=== PATIENT | male | born 2000 | race American Indian/Alaskan Native ===

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

== ENCOUNTER 2019-10-23 17:25 | Emergency (ER) | payer MEDICAID, OTHER, SELFPAY ==
[2019-10-23 17:33] VITALS: BP 121/79; PULSE 88; RESP 16; TEMP 36.9; O2SAT 97; BMI 31.3
--- NOTE | 2019-10-23 17:38 | DI.RAD.S_ITS ---
PROCEDURE: XR HAND LT 2V INDICATIONS: laceration, clinical concern for foreign body. TECHNIQUE: 2 views of the hand(s) acquired. COMPARISON: None. FINDINGS: Bones: No fractures or dislocations. Carpal bones are normally aligned. No suspicious bony lesions. Soft tissues: No suspicious soft tissue calcifications. No radiopaque foreign bodies are seen. IMPRESSION: No radiopaque foreign bodies are seen. No acute bony injury is seen. If there is strong suspicion for developing osteomyelitis, please consider a dedicated MRI without and with contrast for further evaluation (assuming that there is no contraindication to MRI). Dictated by: Matthew Nunez M.D. on 10/23/2019 at 17:01 Approved by: Matthew Nunez M.D. on 10/23/2019 at 17:02
--- NOTE | 2019-10-23 18:34 | ED_ITS ---
HPI - Wound/Laceration <LAURYN Vazquez - Last Filed: 10/23/19 19:34> General Chief Complaint: Wound/Laceration Stated Complaint: cut left hand open Time Seen by Provider: 10/23/19 17:30 Source: patient Mode of arrival: Ambulatory Limitations: no limitations History of Present Illness HPI narrative: This is a 19-year-old male nonsmoker who presents to ED with left hand laceration from a knife on the base of the thumb on volar aspect prior coming into ED. 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 Right dominant hand and last tetanus shot was updated in 2-3 years ago. Patient reports able to move his hand/finger without difficulty and reports 9/10 and stinging discomfort. Related Data Previous Rx's Medication Instructions Recorded ibuprofen 800 mg PO Q8H PRN #20 tab 07/22/18 Allergies Allergy/AdvReac Type Severity Reaction Status Date / Time No Known Allergies Allergy Verified 10/23/19 17:33 Review of Systems <LAURYN Vazquez - Last Filed: 10/23/19 19:34> Review of Systems Narrative: General: Denies fever, chills, fatigue, malaise, sweats. HEENT: Denies sinus pain, ear pain, sore throat, difficulty swallowing, dizziness. Respiratory: Denies dyspnea, cough, wheezing, hemoptysis, sputum. Cardiovascular: Denies chest pain, palpitations, orthopnea, edema. Gastrointestinal: Denies nausea, vomiting, abdominal pain, diarrhea, constipation, melena. : Denies dysuria, frequency, incontinence, hematuria, urinary retention. Musculoskeletal: Denies weakness, joint pain or bony pain. Skin: See HPI Neurologic: Denies weakness, headache, numbness, change in speech, confusion, seizures, incoordination. Psychiatric: No concerning psychosocial issues. 12-point review of systems is negative except for those stated above. Patient History <LAURYN Vazquez - Last Filed: 10/23/19 19:34> Medical History Arm fracture, left (Acute) Surgical History H/O elbow surgery (Acute) Social History Smoking Status: Never smoker Smoking Status: Never smoker alcohol intake frequency: holidays/special occasions only Substance Use Type: does not use, former substance user and marijuana Exam <LAURYN Vazquez - Last Filed: 10/23/19 19:34> Narrative Exam Narrative: General appearance: well developed, well nourished, in no acute distress. Head: normocephalic, atraumatic, no scalp lesions, non-tender. ENT: Hearing grossly intact. Nose without bleeding, purulent discharge, septal hematoma or deviation. Turbinate without erythema or swelling. Facial sinuses nontender to palpate. Mucous membrane moist, no mucosal lesion. Throat without erythema, tonsillar hypertrophy or exudate. Uvula in midline, airway patent. Neck/Thyroid: neck supple, full range of motion, no visible masses or meningeal signs. No JVD, non-tender without lymphadenopathy. Skin: 2.5 linear laceration on volar aspect of left thumb metatarsal with bleeding when pressure dressing removed. No suspicious rashes, lesions over vi sible areas. Warm and dry and appropriate color for ethnicity. Heart: no clubbing, no cyanosis, no edema. Lungs: Breathing even and unlabored. No stridor. No accessory muscles used. Able to speak in full sentences. Chest: normal shape and expansion. Abdomen: non-obese, non-distended. Neurologic: alert and oriented. Cognitive exam, [employer] and PNS grossly intact on informal exam. Psych: good eye contact, normal affect. Initial Vital Signs Initial Vital Signs: Vital Signs Temperature 98.5 F 10/23/19 17:33 Pulse Rate 88 10/23/19 17:33 Respiratory Rate 16 10/23/19 17:33 Blood Pressure 121/79 10/23/19 17:33 Pulse Oximetry 97 10/23/19 17:33 Extrem Left upper extremity: hand Details: normal capillary refill, neuromotor exam normal, neurosensory exam normal, tendon exam normal, tenderness, vascular exam Details: radial pulse present, normal ROM of fingers and laceration (2.5 cm laceration on volar aspect of left thumb metatarsal); no foreign bodies <Telma Rivera DO - Last Filed: 10/24/19 08:29> Initial Vital Signs Initial Vital Signs: Vital Signs Temperature 98.5 F 10/23/19 17:33 Pulse Rate 88 10/23/19 17:33 Respiratory Rate 16 10/23/19 17:33 Blood Pressure 121/79 10/23/19 17:33 Pulse Oximetry 97 10/23/19 17:33 Procedures <[facility] - Last Filed: 10/23/19 19:34> Laceration Repair Laceration 1: Site: hand (volar aspect based on the thumb) Side (If applicable): left Size (cm): 2.5 Description: linear Depth: simple, single layer Local Anesthetic: lidocaine 1% and with bicarb Amount of anesthesia used (mL): 2.5 Pre-repair: wound explored and irrigated extensively Skin layer closed with: nylon Size (cm): 4-0 Number of sutures: 4 Technique: simple, interrupted Scores <[facility] - Last Filed: 10/23/19 19:34> GCS [place] coma scale eye opening: Spontaneous [place] coma scale verbal response: Orientated [place] coma scale motor response: Obey commands Orlin coma scale total score: 15 Course <Jluis Hillary [facility] - Last Filed: 10/23/19 19:34> Orders Ordered: Discontinued Medications Bacitracin (Bacitracin) 1 applic TOP NOW ONE Stop: 10/23/19 17:40 Lidocaine/Sodium Bicarbonate (Buffered Lidocaine 10 Ml Syr) 10 ml INJ NOW ONE Stop: 10/23/19 17:40 Vital Signs Vital signs: Vital Signs - 8 hr 10/23/19 17:33 10/23/19 18:49 Temperature 98.5 F Pulse Rate 88 81 Respiratory Rate 16 18 Blood Pressure 121/79 130/70 Pulse Oximetry 97 97 <Telma Rivera DO - Last Filed: 10/24/19 08:29> Orders Ordered: Discontinued Medications Bacitracin (Bacitracin) 1 applic TOP NOW ONE Stop: 10/23/19 17:40 Lidocaine/Sodium Bicarbonate (Buffered Lidocaine 10 Ml Syr) 10 ml INJ NOW ONE Stop: 10/23/19 17:40 Vital Signs Vital signs: Vital Signs - 8 hr 10/23/19 17:33 10/23/19 18:49 Temperature 98.5 F Pulse Rate 88 81 Respiratory Rate 16 18 Blood Pressure 121/79 130/70 Pulse Oximetry 97 97 [facility] - Wound/Laceration <LAURYN Vazquez - Last Filed: 10/23/19 19:34> Differential Diagnosis Differential diagnosis: Likely laceration Medical Records Attestation: I reviewed the patient's medical records. Imaging Data XR-Hand LT: Radiologist's Impression: [address] [address] XRay Report Signed Patient: Tucker Elias AMR#: [id number] : 2000Acct:[id number] Age/Sex: MDate of Service: 10/23/19 Loc: ED Accession Number: [id number] Procedure: XR hand LT 2V Ordering Provider: Jluis Thornton PROCEDURE: XR HAND LT 2V INDICATIONS: laceration, clinical concern for foreign body. TECHNIQUE: 2 views of the hand(s) acquired. COMPARISON: None. FINDINGS: Bones: No fractures or dislocations. Carpal bones are normally aligned. No suspicious bony lesions. Soft tissues: No suspicious soft tissue calcifications. No radiopaque foreign bodies are seen. IMPRESSION: No radiopaque foreign bodies are seen. No acute bony injury is seen. If there is strong suspicion for developing osteomyelitis, please consider a dedicated MRI without and with contrast for further evaluation (assuming that there is no contraindication to MRI). Dictated by: Matthew Nunez M.D. on 10/23/2019 at 17:01 Approved by: Matthew Nunez M.D. on 10/23/2019 at 17:02 [facility] Narrative Medical decision making narrative: This is 19-year-old male who accidentally cut left volar aspect of thumb metatarsal with a knife while he was working on a boat hydraulic pump for [employer]. Neurovascular exam is normal with intact motor function of left thumb. Laceration has been repaired and please see procedural note and patient tolerated procedure well. No evidence of fracture or foreign body per x-ray test. Return precautions were discussed with the patient including signs and symptoms for infection and suture removal in 7-10 days. Wound care instruction provided. Patient verbalized understanding and agrees with the treatment plan. Tetanus status is up to date. Discharge Plan Departure Patient Disposition: Home Clinical Impression: Laceration of hand Qualifiers: Encounter type: initial encounter Foreign body presence: without foreign body Laterality: left Qualified Code(s): S61.412A - Laceration without foreign body of left hand, initial encounter Discharge Date/Time: 10/23/19 18:50 Instructions: DI for Laceration Repair Activity Restrictions/Additional Instructions: You have been diagnosed with [laceration on left base of thumb. X-ray test does not show any foreign bodies.]. What to do: *Take your medications as directed. You can take [id number] Tylenol and or Motrin as needed for discomfort. Tylenol up to 4000 mg in 24 hour period and Motrin 600-800 mg 3 times a day with food to decrease GI irritation. Please do not get your wound soaked in the water until suture removal. Keep your dressing intact for next 24 hrs. After then, you could remove your dressing, wash with soap and water. Pat dry with clean paper towel and dress it with antibiotic ointment. You can change dressing as needed and daily. Please monitor for signs and symptoms for infection such as increasing redness, swelling, warmth, pain, fever, purulent discharge. If this occurs, please return to ED or follow up with your primary care physician since your wound may be gotten infected. Please follow up with your primary care provider in 2-3 days for recheck wound. Your suture should be removed [7-10 ] days. This can be done by your primary provider, walk-in clinic or here in ED. Please keep your wound clean, dry and intact all times. Prescriptions: No Action ibuprofen 800 mg tablet 800 mg PO Q8H PRN (Reason: pain) Qty: 20 RF: 0
[2019-10-23 18:49] VITALS: BP 130/70; PULSE 81; RESP 18; O2SAT 97
== END 2019-10-23 18:50 | disposition home or self-care (01) ==
PROVIDERS: Emergency Provider Nurse Practitioner Family
DX: S61.412A Laceration without foreign body of left hand, initial encounter (principal); W26.0XXA Contact with knife, initial encounter
CPT/HCPCS: 12001; 73120; 99283

== ENCOUNTER 2020-02-11 17:39 | Emergency (ER) | payer MEDICAID, OTHER, SELFPAY ==
--- NOTE | 2020-02-11 18:01 | PC.NURSE ---
called for triage with no answer
--- NOTE | 2020-02-11 19:03 | PC.NURSE ---
called x 2 not in WR
== END 2020-02-11 19:04 | disposition left against medical advice (07) ==
PROVIDERS: Emergency Provider Emergency Medicine

== ENCOUNTER 2020-03-16 23:07 | Emergency (ER) | payer MEDICAID, OTHER, SELFPAY ==
[2020-03-16 23:27] VITALS: BP 157/86; PULSE 76; RESP 15; TEMP 36.7; O2SAT 96; BMI 32.3
--- NOTE | 2020-03-17 | DI.RAD.S_ITS ---
PROCEDURE: XR CHEST 1V INDICATIONS: trauma TECHNIQUE: One view of the chest was acquired. COMPARISON: [facility], RG, XR CXR 2V, 1999, 13:16. [facility], RG, XR CXR 2V, 1999, 13:07. [facility], CT, CT HEAD/BRAIN WO CON, 03/17/2020, 0:03. [facility], CT, CT CERVICAL SPINE WO CON, 03/17/2020, 0:03. [facility], CR, XR HAND RT MIN 3V, 03/16/2020, 23:58. FINDINGS: Surgical changes and devices: None. Lungs and pleura: An incomplete inspiratory result is noted, causing a crowded appearance to the lung markings. No focal infiltrates are seen. No pneumothorax or significant pleural effusions are seen. Mediastinum: Mediastinal contours appear normal. Heart size is normal. Bones and chest wall: No suspicious bony lesions. Overlying soft tissues appear unremarkable. IMPRESSION: Unremarkable portable chest study. No pneumothorax or displaced rib fractures are seen. If there is strong clinical concern for chest trauma, please consider a dedicated chest CT with IV contrast for further evaluation. Dictated by: Matthew Nunez M.D. on 03/17/2020 at 7:22 Approved by: Matthew Nunez M.D. on 03/17/2020 at 7:23
--- NOTE | 2020-03-17 | DI.CT.S_ITS ---
PROCEDURE: CT CERVICAL SPINE WO CON INDICATIONS: Trauma TECHNIQUE: Noncontrast 3 mm thick sections acquired from the skull base to the T4 level. Sagittal and coronal reformats were then constructed. For radiation dose reduction, the following was used: automated exposure control, adjustment of mA and/or kV according to patient size. COMPARISON: [facility], CT, CT HEAD/BRAIN WO CON, 03/17/2020, 0:03. [facility], CR, XR CHEST 1V, 03/16/2020, 23:58. [facility], CR, XR HAND RT MIN 3V, 03/16/2020, 23:58. FINDINGS: Image quality: Excellent. Bones: No fractures or dislocations. Visualized superior ribs are intact. Soft tissues: Prevertebral soft tissues are normal in thickness. No paravertebral hematomas. No apical pneumothoraces. IMPRESSION: Normal study, without fractures. Note: No significant discrepancy from the preliminary report. Dictated by: Matthew Nunez M.D. on 03/17/2020 at 7:20 Approved by: Matthew Nunez M.D. on 03/17/2020 at 7:21
--- NOTE | 2020-03-17 | DI.RAD.S_ITS ---
PROCEDURE: XR HAND RT MIN 3V INDICATIONS: trauma TECHNIQUE: 3 views of the hand(s) acquired. COMPARISON: [facility], CT, CT CERVICAL SPINE WO CON, 03/17/2020, 0:03. [facility], CT, CT HEAD/BRAIN WO CON, 03/17/2020, 0:03. [facility], CR, XR CHEST 1V, 03/16/2020, 23:58. [facility], CR, XR HAND LT 2V, 10/23/2019, 17:49. FINDINGS: Study is limited by nonstandard positioning. Bones: No acute fractures or dislocations. Remote appearing is seen of the distal radius. Carpal bones are normally aligned. No suspicious bony lesions. Soft tissues: No suspicious soft tissue calcifications. IMPRESSION: No displaced fractures are seen on these plain films. If there is focal tenderness, or other clinical concern for a fracture not seen on these images in this patient with a given history of trauma, please consider a dedicated CT or a short-term followup plain film series (in 1-2 weeks) for further evaluation. Presumed remote, healed distal radius fracture. Dictated by: Matthew Nunez M.D. on 03/17/2020 at 7:23 Approved by: Matthew Nunez M.D. on 03/17/2020 at 7:24
--- NOTE | 2020-03-17 | DI.CT.S_ITS ---
PROCEDURE: CT HEAD/BRAIN WO CON INDICATIONS: Trauma TECHNIQUE: Noncontrast 4.5 mm thick angled axial sections acquired from the foramen magnum to the vertex, with coronal and sagittal reformats. For radiation dose reduction, the following was used: automated exposure control, adjustment of mA and/or kV according to patient size. COMPARISON: [facility], CT, CT CERVICAL SPINE WO CON, 03/17/2020, 0:03. [facility], CR, XR CHEST 1V, 03/16/2020, 23:58. [facility], CR, XR HAND RT MIN 3V, 03/16/2020, 23:58. FINDINGS: Image quality: Excellent. CSF spaces: Basal cisterns are patent. No extra-axial fluid collections. Ventricles are normal in size and shape. Brain: No midline shift. No intracranial masses or hemorrhage. [place]-white matter interface is normal. Skull and face: Calvarium and visualized facial bones are intact, without suspicious lesions. Sinuses: Visualized sinuses and mastoids are clear. IMPRESSION: No acute intracranial hemorrhage is seen. No acute intracranial process is seen. Note: No significant discrepancy from the preliminary report. Dictated by: Matthew Nunez M.D. on 03/17/2020 at 7:19 Approved by: Matthew Nunez M.D. on 03/17/2020 at 7:20
[2020-03-17 00:33] LABS: Ur Creatinine Normal (Normal); Ur Specific Gravity Normal (Normal); Urine pH Normal (Normal)
[2020-03-17 00:34] LABS: UR Morphine/Opiate cutoff 300 Positive (Negative); Urine Amphetamines Negative (Negative); Urine Barbiturates Negative (Negative); Urine Benzodiazepines Negative (Negative); Urine Cocaine Negative (Negative); Urine MDMA Negative (Negative); Urine Methadone Negative (Negative); Urine Methamphetamines Negative (Negative); Urine Oxycodone Negative (Negative); Urine Phencyclidine Negative (Negative); Urine Tetrahydrocannabinol Positive (Negative); Urine Tricyclic Antidepressant Negative (Negative)
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
[2020-03-17 01:18] LABS: Add Manual Diff / Slide Review NO; Basophils Absolute Auto 0 /uL (0-100); Basophils Percent Auto 0.4 % (0-2); Eosinophils Absolute Auto 100 /uL (0-450); Hemoglobin 14.1 g/dL (13.5-17.5); Lymphocytes Absolute Auto 1400 /uL (1100-4500); Lymphocytes Percent Auto 19.1 % (25-40); Mean Corpuscular HGB Conc 33.6 % (30-36); Mean Corpuscular Hemoglobin 28.8 PG (26-34); Mean Corpuscular Volume 85.8 fL (80-100); Monocytes Absolute Auto 700 /uL (0-900); Monocytes Percent Auto 9.3 % (3-14); Neutrophils Absolute Auto 5000 /uL (1500-7000); Neutrophils Percent Auto 70.2 % (50-75); Platelet Count 252 X10^3/uL (150-400); White Blood Cell Count 7.1 X10^3/uL (4.5-11.0)
[2020-03-17 01:30] VITALS: BP 131/76; PULSE 80; RESP 17; O2SAT 98
[2020-03-17 01:43] LABS: Alanine Aminotransferase 26 IU/L (<50); Albumin 4.4 g/dL (3.5-5.0); Albumin Globulin Ratio 1.5 (1.0-2.8); Alkaline Phosphatase 71 U/L (38-126); Aspartate Aminotransferase 47 IU/L (17-59); BUN Creatinine Ratio 17.4 (6-22); Bilirubin Total 0.6 mg/dL (0.2-1.3); Blood Urea Nitrogen 12 mg/dL (9-20); Calcium 9.5 mg/dL (8.4-10.2); Carbon Dioxide 25 mmol/L (22-32); Chloride 102 mmol/L (98-107); Estimated Glomerular Filt Rate > 60.0 mL/min (>60); Ethanol (ETOH) < 10 mg/dL; Globulin 2.9 g/dL (1.7-4.1); Glucose 93 mg/dL (70-100); HEMOLYSIS < 15 (0-50); Lipase 76 U/L (23-300); Potassium 3.7 mmol/L (3.4-5.1); Sodium 136 mmol/L (137-145); Total Protein 7.3 g/dL (6.3-8.2)
== END 2020-03-17 02:27 | disposition home or self-care (01) ==
PROVIDERS: Emergency Provider Emergency Medicine
DX: R41.82 Altered mental status, unspecified (principal); S60.221A Contusion of right hand, initial encounter; F11.90 Opioid use, unspecified, uncomplicated; V89.2XXA Person injured in unspecified motor-vehicle accident, traffic, initial encounter
CPT/HCPCS: 36415; 70450; 71045; 72125; 73130; 80053; 80305; 80320; 81003; 83690; 85025; 99283; 99284

== ENCOUNTER 2021-02-25 22:10 | Emergency (ER) | payer MEDICAID, OTHER, SELFPAY ==
[2021-02-25 22:40] VITALS: BP 124/59; PULSE 92; RESP 16; TEMP 36.9; O2SAT 98; BMI 33.3
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
--- NOTE | 2021-02-25 22:50 | DI.RAD.S_ITS ---
PROCEDURE: XR TIBIA FUBULA RT 2V INDICATIONS: pain swelling TECHNIQUE: 2 views of the tibia and fibula were acquired. COMPARISON: None. FINDINGS: Bones: No fractures or dislocations. No suspicious bony lesions. Soft tissues: No suspicious soft tissue calcifications or masses. IMPRESSION: No fracture. No osseous lesion. If symptoms and/or clinical suspicion for pathology persists, further assessment with repeat radiographs (7-10 days) or advanced imaging (e.g. CT, MRI or bone scan) should be considered. Dictated by: Marcela Barakat MD, PhD on 02/26/2021 at 8:15 Approved by: Marcela Barakat MD, PhD on 02/26/2021 at 8:15
--- NOTE | 2021-02-25 22:50 | DI.RAD.S_ITS ---
PROCEDURE: XR FOOT RT MIN 3V INDICATIONS: pain swelling TECHNIQUE: 3 views of the foot were acquired. COMPARISON: None. FINDINGS: Bones: No fractures or dislocations. No suspicious bony lesions. Soft tissues: No tibiotalar joint effusion. Achilles tendon appears normal. IMPRESSION: No fracture. No osseous lesion. If symptoms and/or clinical suspicion for pathology persists, further assessment with repeat radiographs (7-10 days) or advanced imaging (e.g. CT, MRI or bone scan) should be considered. Dictated by: Marcela Barakat MD, PhD on 02/26/2021 at 8:17 Approved by: aMrcela Barakat MD, PhD on 02/26/2021 at 8:17
--- NOTE | 2021-02-25 22:50 | DI.RAD.S_ITS ---
PROCEDURE: XR ANKLE RT MIN 3V INDICATIONS: pain swelling TECHNIQUE: 3 views of the ankle were acquired. COMPARISON: None. FINDINGS: Bones: No fractures or dislocations. Ankle mortise is normally aligned. No suspicious bony lesions. Soft tissues: No tibiotalar joint effusion. Achilles tendon appears normal. IMPRESSION: No fracture. No osseous lesion. If symptoms and/or clinical suspicion for pathology persists, further assessment with repeat radiographs (7-10 days) or advanced imaging (e.g. CT, MRI or bone scan) should be considered. Dictated by: Marcela Barakat MD, PhD on 02/26/2021 at 8:15 Approved by: Marcela Barakat MD, PhD on 02/26/2021 at 8:16
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
[2021-02-26] MEDS: ACETAMINOPHEN 325 MG TABLET PO (02:03)
[2021-02-26] MEDS: IBUPROFEN 400 MG TABLET PO (02:03)
== END 2021-02-26 02:10 | disposition home or self-care (01) ==
PROVIDERS: Emergency Provider Emergency Medicine
DX: S89.91XA Unspecified injury of right lower leg, initial encounter (principal); X58.XXXA Exposure to other specified factors, initial encounter
CPT/HCPCS: 73562; 73590; 73610; 73630; 99283

== ENCOUNTER 2021-04-04 21:23 | Emergency (ER) | payer MEDICAID, OTHER, SELFPAY ==
[2021-04-04 21:32] VITALS: BP 130/69; PULSE 80; RESP 14; TEMP 36.9; O2SAT 97; BMI 27.6
[2021-04-04 22:13] LABS: Appearance Urine UA CLOUDY; Bilirubin Urine UA NEGATIVE (NEGATIVE); Color Urine UA YELLOW; Glucose Urine UA NEGATIVE (Negative); Ketones Urine UA NEGATIVE (NEGATIVE); Leukocyte Esterase Urine UA 2+ (NEGATIVE); Nitrite Urine UA NEGATIVE (Negative); Occult Blood Urine UA 3+ (Negative); Protein Urine UA 2+ (Negative); Specific Gravity Urine UA 1.025 (1.000-1.035)
[2021-04-04 22:21] LABS: Bacteria Urine Few (2-10); Culture Indicated Urine Specimen Cultured; RBC Urine 10-30/HPF (0-5/HPF); WBC Urine 30-100/HPF (0-5/HPF)
[2021-04-04 23:48] LABS: Urine Chlamydia NOT DETECTED
[2021-04-05 14:05] LABS: Urine N gonorrhoeae DETECTED
== END 2021-04-04 22:15 | disposition left against medical advice (07) ==
PROVIDERS: Emergency Provider Emergency Medicine
DX: R36.9 Urethral discharge, unspecified (principal)
CPT/HCPCS: 81001; 87077; 87086; 87491; 87591; 99281

== ENCOUNTER 2022-09-25 06:52 | Emergency (ER) | payer MEDICAID, OTHER, SELFPAY ==
[2022-09-25 06:35] VITALS: BP 128/71; PULSE 116; RESP 16; TEMP 36.6; O2SAT 85
--- NOTE | 2022-09-25 07:23 | ED_ITS ---
HPI - Overdose General Chief Complaint: Toxicology Problem Stated Complaint: OD smoking percocet Time Seen by Provider: 09/25/22 07:12 Source: patient and EMS Mode of arrival: EMS Limitations: no limitations History of Present Illness HPI Narrative: This is a 22-year-old male sober for approximately 9 months, patient takes venlafaxine and mirtazapine daily and presents today with unintentional overdose. Patient states he used to smoke about 30 or 40 tablets of Percocet today he states he took approximately 430 mg Percocets likely with fentanyl mixed in and received 16 mg of Narcan from family, he received this probably an hour to an hour and a half prior to my evaluation at 8:00 a.m. Patient did have overdose the day before. He states he was [facility] recently which had forced him to get sober. Patient states that he missed. He wishes to be sober. He expresses interest in rehab and that his mom is coming to the emergency department to help talk to him about it. Patient states right now he denies any chest pain or shortness of breath. He states he vomited a lot initially, he does not remember exactly what happened. He states he is not nauseated now. He states he did not get any diarrhea. He does not feel like he is cold or shivering. Denies any other GI or urinary symptoms besides stated above. Patient denies any other daily medications. No known drug allergies. States occasional vaping of tobacco, denies any active alcohol use, denies other illicit drugs currently. Related Data Previous Rx's Medication Instructions Recorded ibuprofen 800 mg tablet 800 mg PO Q8H PRN pain #20 tabs 07/22/18 amoxicillin 875 mg-potassium 1 tab PO BID 10 days #20 tabs 09/25/22 clavulanate 125 mg tablet Allergies Allergy/AdvReac Type Severity Reaction Status Date / Time No Known Allergies Allergy Verified 04/04/21 21:41 Review of Systems Review of Systems ROS Unobtainable: All systems reviewed & are unremarkable except as noted in HPI and below Patient History Medical History Arm fracture, left Opioid use disorder, severe, in early remission Surgical History H/O elbow surgery Social History Smoking Status: Never smoker Smoking Status: Never smoker alcohol intake frequency: 0-2 drinks per day Substance Use Type: former substance user Exam Narrative Exam Narrative: GEN: well nourished, well appearing male, alert and oriented x 3, patient appears to be in mild distress. HEENT: Atraumatic, pupils are equal round reactive to light, extraocular movements are intact, nares are clear, TMs are clear with no fluid, there is no conjunctival pallor. Throat is clear without any exudates, erythema, tonsillar enlargement or uvular deviation HEART: Tachycardic but Regular rate and rhythm without murmur, clicks, rubs. Pulses are equal in upper and lower extremities LUNGS:Lungs clear to auscultation, no wheezes, rales, crackles, chest moves symmetrically, no tachypnea accessory muscle use. ABD:bowel sounds normal, soft, non-tender, no guarding, rebound, rigidity, no masses noted, no hepatosplenomegaly :No CVA tenderness MSCL: Non-tender, no muscle atrophy, muscles strength 5/5 upper and lower extremities, full range of motion NEURO:CN 2-12 intact, sensation normal, GCS 15 SKIN: Rash, erythema or other skin changes noted. Initial Vital Signs Initial Vital Signs: Vital Signs Temperature 98 F 09/25/22 06:35 Pulse Rate 116 H 09/25/22 06:35 Respiratory Rate 16 09/25/22 06:35 Blood Pressure 128/71 09/25/22 06:35 Pulse Oximetry 85 L 09/25/22 06:35 Oxygen Delivery Method 09/25/22 06:35 Scores GCS Noel coma scale eye opening: Spontaneous Noel coma scale verbal response: Orientated Noel coma scale motor response: Obey commands Noel coma scale total score: 15 Course Orders Ordered: Discontinued Medications Sodium Chloride (Normal Saline 0.9%) 1,000 mls @ 150 mls/hr IV CONT BLANCA Last Infusion: 09/25/22 09:38 Dose: 0 mls/hr Documented By: Admin: 09/25/22 07:54 Dose: 150 mls/hr Documented By: WING Naloxone HCl (Naloxone 1 Mg/Ml Syringe) 2 mg IV PRN PRN PRN Reason: Opiate Reversal Naloxone HCl (Naloxone 1 Mg/Ml Syringe) 0.4 mg IV PRN PRN PRN Reason: Opiate Reversal Naloxone HCl (Naloxone 4 Mg Nasal [place]) 4 mg MISC SEEINSTR ONE Stop: 09/25/22 09:31 Last Admin: 09/25/22 09:35 Dose: 4 mg Documented By: FERN Ondansetron HCl (Ondansetron 4 Mg/2 Ml Inj) 4 mg IV NOW ONE Stop: 09/25/22 09:14 Last Admin: 09/25/22 09:16 Dose: 4 mg Documented By: EFRN Vital Signs Vital signs: Vital Signs - 8 hr 09/25/22 06:35 Temperature 98 F Pulse Rate 116 H Respiratory Rate 16 Blood Pressure 128/71 Pulse Oximetry 85 L Oxygen Delivery Method Room Air MDM - Overdose Lab Data Result diagrams: 09/25/22 07:30 09/25/22 07:30 Labs: Lab Results 09/25/22 09/25/22 09/25/22 Range/Units 07:30 07:30 07:30 WBC 11.8 H (4.5-11.0) X10^3/uL RBC 5.25 (4.5-5.9) X10^6/uL Hgb 14.5 (13.5-17.5) g/dL Hct 44.3 (41-53) % MCV 84.4 (80-100) fL MCH 27.7 (26-34) PG MCHC 32.8 (30-36) % RDW 14.4 (11.6-14.8) % Plt Count 303 (150-400) X10^3/uL Neut % (Auto) 90.2 H (50-75) % Lymph % (Auto) 4.6 L (25-40) % [place] % (Auto) 4.7 (3-14) % Eos % (Auto) 0.1 L (2-4) % Baso % (Auto) 0.4 (0-2) % Neut # (Auto) 25575 H (9341-5916) /uL Lymph # (Auto) 500 L (8969-8926) /uL [place] # (Auto) 600 (0-900) /uL Eos # (Auto) 0 (0-450) /uL Baso # (Auto) 0 (0-100) /uL Sodium 137 (137-145) mmol/L Potassium 5.2 H (3.4-5.1) mmol/L Chloride 96 L (98-107) mmol/L Carbon Dioxide 33 H (22-32) mmol/L BUN 15 (9-20) mg/dL Creatinine 0.78 (0.66-1.25) mg/dL Estimated GFR > 60 (>60) mL/min BUN/Creatinine Ratio 19.2 (6-22) Glucose 109 H (70-100) mg/dL Lactate 1.2 (0.7-2.1) mmol/L Calcium 8.4 (8.4-10.2) mg/dL Total Bilirubin 0.7 (0.2-1.3) mg/dL Conjugated Bilirubin 0.0 (0.0-0.3) md/dL Unconjugated Bilirubin 0.3 (0.0-1.1) mg/dL AST 27 (17-59) IU/L ALT 29 (<50) IU/L Alkaline Phosphatase 115 (38-126) U/L Total Protein 8.2 (6.3-8.2) g/dL Albumin 4.5 (3.5-5.0) g/dL Globulin 3.7 (1.7-4.1) g/dL Albumin/Globulin Ratio 1.2 (1.0-2.8) Salicylates < 1.0 (<20) mg/dL U Opiates 300ng/mL cut (Negative) Ur Oxycodone Screen (Negative) Urine Methadone Screen (Negative) Acetaminophen < 10 (10-30) ug/mL Ur Barbiturates Screen (Negative) U Tricyclic Antidepress (Negative) Ur Phencyclidine Scrn (Negative) Ur Amphetamines Screen (Negative) U Methamphetamines Scrn (Negative) Ur MDMA Scrn (Ecstasy) (Negative) U Benzodiazepines Scrn (Negative) Urine Cocaine Screen (Negative) U Marijuana (THC) Screen (Negative) Ethyl Alcohol < 10 ( - 10) mg/dL SARS-CoV-2 (PCR) (Negative) 09/25/22 09/25/22 Range/Units 07:30 08:21 WBC (4.5-11.0) X10^3/uL RBC (4.5-5.9) X10^6/uL Hgb (13.5-17.5) g/dL Hct (41-53) % MCV (80-100) fL MCH (26-34) PG MCHC (30-36) % RDW (11.6-14.8) % Plt Count (150-400) X10^3/uL Neut % (Auto) (50-75) % Lymph % (Auto) (25-40) % [place] % (Auto) (3-14) % Eos % (Auto) (2-4) % Baso % (Auto) (0-2) % Neut # (Auto) (2610-7249) /uL Lymph # (Auto) (3800-5750) /uL [place] # (Auto) (0-900) /uL Eos # (Auto) (0-450) /uL Baso # (Auto) (0-100) /uL Sodium (137-145) mmol/L Potassium (3.4-5.1) mmol/L Chloride (98-107) mmol/L Carbon Dioxide (22-32) mmol/L BUN (9-20) mg/dL Creatinine (0.66-1.25) mg/dL Estimated GFR (>60) mL/min BUN/Creatinine Ratio (6-22) Glucose (70-100) mg/dL Lactate (0.7-2.1) mmol/L Calcium (8.4-10.2) mg/dL Total Bilirubin (0.2-1.3) mg/dL Conjugated Bilirubin (0.0-0.3) md/dL Unconjugated Bilirubin (0.0-1.1) mg/dL AST (17-59) IU/L ALT (<50) IU/L Alkaline Phosphatase (38-126) U/L Total Protein (6.3-8.2) g/dL Albumin (3.5-5.0) g/dL Globulin (1.7-4.1) g/dL Albumin/Globulin Ratio (1.0-2.8) Salicylates (<20) mg/dL U Opiates 300ng/mL cut Negative (Negative) Ur Oxycodone Screen Negative (Negative) Urine Methadone Screen Negative (Negative) Acetaminophen (10-30) ug/mL Ur Barbiturates Screen Negative (Negative) U Tricyclic Antidepress Negative (Negative) Ur Phencyclidine Scrn Negative (Negative) Ur Amphetamines Screen Negative (Negative) U Methamphetamines Scrn Negative (Negative) Ur MDMA Scrn (Ecstasy) Negative (Negative) U Benzodiazepines Scrn Negative (Negative) Urine Cocaine Screen Negative (Negative) U Marijuana (THC) Screen Negative (Negative) Ethyl Alcohol ( - 10) mg/dL SARS-CoV-2 (PCR) Negative (Negative) Point of Care Testing Glucose POC 124 Urine Dip Bedside Urine Glucose Negative Bedside Urine Bilirubin - Negative Bedside Urine Ketone +/- 5 Urine Specific [place] 1.030 Bedside Urine Occult Blood - Negative Bedside Urine pH 6.0 Bedside Urine Protein + 30 Bedside Urine Urobilinogen - Negative Bedside Urine Nitrite - Negative Bedside Urine Leukocytes - Negative Esterase Imaging Data Chest x-ray: Radiologist's Impression: [address] [address] XRay Report Signed Patient: Tucker Belle JR MR#: [id number] : 2000 Acct:[id number] Age/Sex: 22 / M Date of Service: 09/25/22 Loc: ED Accession Number: [id number] ?? Procedure: XR chest 1V Ordering Provider: Telma Rivera D.O. PROCEDURE:? XR CHEST 1V ? INDICATIONS:? overdose/smoking percoset ? TECHNIQUE:? One view of the chest was acquired.? ? COMPARISON:? [facility], CR, XR CHEST 1V, 03/16/2020, 23:58. ? FINDINGS:? ? Surgical changes and devices:? Overlying monitoring wires. ? Lungs and pleura:? Bilateral perihilar peribronchial thickening.? Multifocal patchy alveolar opacities in the right lung.? No pneumothorax or pleural effusion. ? Mediastinum:? Mediastinal contours appear normal.? Heart size is normal.? ? Bones and chest wall:? No suspicious bony lesions.? Overlying soft tissues appear unremarkable.? ? IMPRESSION:? ? 1. Multifocal right lung pneumonia superimposed on bilateral bronchitis.? ? ? Dictated by: Katherine Flannery M.D. on 09/25/2022 at 8:47 ? ? Approved by: Katherine Flannery M.D. on 09/25/2022 at 8:48?? ECG Data Attestation: I personally reviewed and interpreted this ECG as follows: Interpretation: Sinus tachycardia rate of 118 UT 140 QRS 80 QTC of 451. No acute ST changes noted. MDM Narrative Medical decision making narrative: This is a 22-year-old male with history of substance abuse who had been sober for 8-10 months who overdosed on narcotics. Patient states unintentionally, he states that he only used 4 tablets initially was 85% on room air, he appears to be weaning down. He received quite a bit of Narcan in the field likely intranasal from his family up to 16 mg reportedly. He is in no acute distress currently he is still tachycardic. Patient and I discussed if he would be interested in placement in rehab facility. He expresses interest but also states that his mom is coming to help him with it. Patient is insisting that he leave he is requiring oxygen to maintain into the mid 90s for his oxygenation. Discussed with patient I suspect he aspirated could have a component pulmonary edema as well as Narcan but seems to be more right sided and he did have emesis at the scene. Patient is insistent that he leaves, he is competent, understands the risk we reviewed these his significant others at bedside as well. She is also tried to convince him to stay. When asked if there was anything that would help convince the patient to stay he states no. He is open having a prescription for antibiotics although I discussed this takes a couple days and with low oxygen if it continues to drop or stays persistently low can cause . Patient expresses understanding and I filled out the Against Medical Advice paperwork with the patient at bedside. He was provided Narcan prepack and he states he will have family around that is helpful and knows how to use Narcan. Naloxone at Discharge Meets criteria for naloxone at discharge?: Yes (patient got narcan. Can't close chart unless clicking button below.) Reason patient is not provided naloxone?: Other reason (patient did receive narcan. ) Discharge Plan Departure Patient Disposition: Left Against Medical Advice Clinical Impression: Aspiration pneumonia, Opiate or related narcotic overdose Activity Restrictions/Additional Instructions: You should stay in the hospital your oxygen levels are low and your off oxygen secondary to aspirating vomit and causing pneumonia. You will if your oxygen levels continue to drop or continued to stay very low. You are welcome to return at any time regardless of how you feel. Prescription for antibiotics is printed, this medication take several days to be fully effective. It may be helpful to be on antibiotics to help with the aspiration pneumonia, prepack for Narcan is also provided. Please give this to your family or individuals that you trust and make sure they know how to use it. Prescriptions: New amoxicillin-pot clavulanate 875-125 mg tablet 1 tab PO BID 10 Days Qty: 20 0RF No Action ibuprofen 800 mg tablet 800 mg PO Q8H PRN (Reason: pain) Qty: 20 0RF Stand Alone Forms: Against Medical Advice
[2022-09-25] MEDS: SODIUM CHLORIDE 0.9% 1,000 ML 150 ML IV (07:54)
[2022-09-25 08:00] VITALS: PULSE 112; RESP 20; O2SAT 96
[2022-09-25 08:02] LABS: Add Manual Diff / Slide Review NO; Basophils Absolute Auto 0 /uL (0-100); Basophils Percent Auto 0.4 % (0-2); Eosinophils Absolute Auto 0 /uL (0-450); Eosinophils Percent Auto 0.1 % (2-4); Hematocrit 44.3 % (41-53); Hemoglobin 14.5 g/dL (13.5-17.5); Lymphocytes Absolute Auto 500 /uL (1100-4500); Lymphocytes Percent Auto 4.6 % (25-40); Mean Corpuscular HGB Conc 32.8 % (30-36); Mean Corpuscular Hemoglobin 27.7 PG (26-34); Mean Corpuscular Volume 84.4 fL (80-100); Monocytes Absolute Auto 600 /uL (0-900); Monocytes Percent Auto 4.7 % (3-14); Neutrophils Absolute Auto 10700 /uL (1500-7000); Neutrophils Percent Auto 90.2 % (50-75); Platelet Count 303 X10^3/uL (150-400); Red Blood Cell Count 5.25 X10^6/uL (4.5-5.9); Red Cell Distribution Width 14.4 % (11.6-14.8); White Blood Cell Count 11.8 X10^3/uL (4.5-11.0)
--- NOTE | 2022-09-25 08:04 | DI.RAD.S_ITS ---
PROCEDURE: XR CHEST 1V INDICATIONS: overdose/smoking percoset TECHNIQUE: One view of the chest was acquired. COMPARISON: [facility], CR, XR CHEST 1V, 03/16/2020, 23:58. FINDINGS: Surgical changes and devices: Overlying monitoring wires. Lungs and pleura: Bilateral perihilar peribronchial thickening. Multifocal patchy alveolar opacities in the right lung. No pneumothorax or pleural effusion. Mediastinum: Mediastinal contours appear normal. Heart size is normal. Bones and chest wall: No suspicious bony lesions. Overlying soft tissues appear unremarkable. IMPRESSION: 1. Multifocal right lung pneumonia superimposed on bilateral bronchitis. Dictated by: Katherine Flannery M.D. on 09/25/2022 at 8:47 Approved by: Katherine Flannery M.D. on 09/25/2022 at 8:48
[2022-09-25 08:23] VITALS: BP 134/78; PULSE 114; RESP 19; O2SAT 96
[2022-09-25 08:26] LABS: COVID19 -Nasal RAPID Negative (Negative)
[2022-09-25 08:30] VITALS: BP 135/70; PULSE 110; RESP 14; O2SAT 96
[2022-09-25 08:35] LABS: Acetaminophen < 10 ug/mL (10-30); Alanine Aminotransferase 29 IU/L (<50); Albumin 4.5 g/dL (3.5-5.0); Albumin Globulin Ratio 1.2 (1.0-2.8); Alkaline Phosphatase 115 U/L (38-126); Aspartate Aminotransferase 27 IU/L (17-59); BUN Creatinine Ratio 19.2 (6-22); Bilirubin Total 0.7 mg/dL (0.2-1.3); Bilirubin Unconjugated 0.3 mg/dL (0.0-1.1); Blood Urea Nitrogen 15 mg/dL (9-20); Calcium 8.4 mg/dL (8.4-10.2); Carbon Dioxide 33 mmol/L (22-32); Chloride 96 mmol/L (98-107); Estimated Glomerular Filt Rate > 60 mL/min (>60); Ethanol (ETOH) < 10 mg/dL; Globulin 3.7 g/dL (1.7-4.1); Glucose 109 mg/dL (70-100); HEMOLYSIS < 15 (0-50); Lactate (Lactic Acid) 1.2 mmol/L (0.7-2.1); Potassium 5.2 mmol/L (3.4-5.1); Salicylate < 1.0 mg/dL (<20); Sodium 137 mmol/L (137-145); Total Protein 8.2 g/dL (6.3-8.2)
[2022-09-25 08:39] LABS: Ur Creatinine Normal (Normal); Ur Specific Gravity Normal (Normal); Urine Tetrahydrocannabinol Negative (Negative); Urine pH Normal (Normal)
[2022-09-25 08:40] LABS: UR Morphine/Opiate cutoff 300 Negative (Negative); Urine Amphetamines Negative (Negative); Urine Barbiturates Negative (Negative); Urine Benzodiazepines Negative (Negative); Urine Cocaine Negative (Negative); Urine MDMA Negative (Negative); Urine Methamphetamines Negative (Negative); Urine Phencyclidine Negative (Negative)
[2022-09-25 08:41] LABS: Urine Methadone Negative (Negative); Urine Oxycodone Negative (Negative); Urine Tricyclic Antidepressant Negative (Negative)
[2022-09-25 09:00] VITALS: BP 147/93; PULSE 126; RESP 24; O2SAT 89
[2022-09-25] MEDS: ONDANSETRON 4 MG/2 ML INJ IV (09:16)
[2022-09-25] MEDS: NALOXONE 4 MG NASAL SPRAY MISC (09:35)
== END 2022-09-25 09:40 | disposition left against medical advice (07) ==
PROVIDERS: Emergency Provider Emergency Medicine
DX: J69.0 Pneumonitis due to inhalation of food and vomit (principal); T40.601A Poisoning by unspecified narcotics, accidental (unintentional), initial encounter; Z20.822 Contact with and (suspected) exposure to COVID-19
CPT/HCPCS: 36415; 71045; 80053; 80076; 80305; 80320; 80329; 81003; 83605; 85025; 87635; 93005; 96361; 96374; 99284; C9803; A9270; G0480; J2405